=== PATIENT | male | born 1990 | race Caucasian/White ===

== ENCOUNTER 2018-08-31 03:59 | Emergency (ER) | payer SELFPAY ==
[~2018-08-31] VITALS: Ht 182.9 cm; Wt 90.9 kg
[2018-08-31 04:02] VITALS: TEMP 97.6
[2018-08-31 05:40] VITALS: BP 132/77; PULSE 105
== END 2018-08-31 05:40 | disposition home or self-care (01) ==
LOC: COL.ER 03:59
DX: T69.9XXA Effect of reduced temperature, unspecified, initial encounter (principal); Z59.0 Homelessness; F17.210 Nicotine dependence, cigarettes, uncomplicated